=== PATIENT | male | born 1960 | race Caucasian/White ===

== ENCOUNTER 2016-09-21 05:39 | Day surgery (SDC) | payer OTHER ==
[2016-09-21] VITALS (10 sets, daily range): BP systolic 132–161; BP diastolic 63–97; PULSE 64–81; RESP 10–18; O2SAT 92–98
[~2016-09-21] VITALS: Ht 175.3 cm; Wt 93.2 kg
[~2016-09-21 05:39] MED LIST: SYN.15T2 PO
[2016-09-21] MEDS ORDERED: HYDROmorphone 2 mg/mL Inj ONE (05:40)
[2016-09-21] MEDS ORDERED: Dexamethasone 4 mg/mL Inj ONE (05:40)
[2016-09-21] MEDS ORDERED: Ondansetron 2 mg/mL 2 mL Inj ONE (05:40)
[2016-09-21] MEDS ORDERED: MetoCLOpramide 5 mg/mL 2 mL Inj ONE (05:40)
[2016-09-21] MEDS ORDERED: Propofol 10,000 mCg/mL 20 mL Inj ONE (05:40)
[2016-09-21] MEDS ORDERED: Glycopyrrolate 0.2 MG/ML 1mL Inj ONE (05:40)
[2016-09-21] MEDS ORDERED: Neostigmine 1 mg/mL 10 mL Inj ONE (05:40)
[2016-09-21] MEDS: Lactated Ringer's 1,000 ML IV SCH ×3 (05:54→09:20)
[2016-09-21] MEDS ORDERED: CeFAZolin Inj 2 gm / 50mL D5W IV ONE (05:57)
[2016-09-21] MEDS ORDERED: CeFAZolin 2 Gm/50 mL D5W IV Premix IV ONE (06:00)
--- NOTE | 2016-09-21 07:16 | PCM.HPANE ---
Patient Data Surgeon Admitting Provider: Attending Provider:Vinod Chairez MD Primary Care Physician:Eben Engle MD Other Provider:[facility] Reason for Visit Bilateral Inguinal Hernia Ht/WT & BMI Height (Feet): 5 Height (Inches): 9 Weight (Kilograms): 93.2 Body Mass Index 30.00 Allergies Coded Allergies: No Known Allergies (Unverified , 09/19/16) Past Anesthesia History Anesthesia History: Denies:: Abnormal Airway, Anesthesia Reactions, Difficult Intubation, Fam Anesthesia Reaction Diabetes History Hx Diabetes?: No MRSA MRSA: No Medications Hypertension Medication: No Home Meds Incl Beta David: No Reported Medications Levothyroxine (Synthroid)150 Mcg [id number] Mcg PO DAILY Ref 0 09/19/16 History History of ENT Problems?: No HEENT History: Positive for:: Sinus Problem (occasional) Denies:: Abnormal Airway Difficult Intubation Dysphagia Hearing Problem TMJ (per dentist - no nightguard use) Hx of Heart Problems?: No Cardiovascular History: Denies:: AICD Chest Pain Congestive Heart Failure Edema Heart Murmur Hypertension Irregular Heartbeat Pacemaker Peripheral Vascular Rheumatic Fever Thrombophlebitis Hx of Respiratory Problem?: No Respiratory History: Denies:: Asthma COPD Emphysema Oxygen Administration Pneumonia Tuberculosis Use of C-PAP Machine Hx Neurologic Problems?: No Neurological History: Denies:: CVA Headaches Multiple Sclerosis Parkinson's Disease Seizures TIA Hx of GI Problems?: Yes Gastrointestinal History: Denies:: Gall Bladder Disease Gastroesphageal Reflux Gastrointestinal Bleeding Heartburn Hiatal Hernia Other GI Pertinent History: pia inguinal hernia current admission problem- right inguinal hernia is recurrence Hx of Problems?: No Other Pertinent History: cyst left kidney found incidentally Male Hx: Denies:: Prostate Problems Skin History: Denies:: History Skin Disorders? Pressure Ulcers Hx Musculoskeletal Problems?: Yes Musculoskeletal History: Positive for:: Musculoskeletal Trauma (past hx right knee scope, ORIF leg trauma) Denies:: Back Injury (hx of 2 months ago- low left back pain, ilea-lumbar ligament pain) Fibromyalgia Joint Replacement Osteoarthritis Rheumatoid Arthritis Hx of Psycho/Social Problems?: No Psycho Social History: Denies:: Anxiety Hx Depression Hx Surgeries?: Yes (ORIF leg, tonsil, thyroidectomy, rt knee scope, RIH) Hx Any Other Health Problems?: Yes Other History: Positive for:: Cancer (thyroid) Thyroid Disease (hx thyroidectomy ([place])) History Blood Transfusions: Positive for:: Accept Blood Products? Denies:: Blood Transfuse Reaction Blood Transfusions Hx Diabetes: No Hx Alcohol Use: NoAlcoholic Drinks Per Day: one to two glasses wine weeklyHx Substance Use: NoHave You Smoked inLast 12 mo: No Stop/Bang Treated for Sleep Apnea?: No Do You Have a CPAP Machine?: No S-Snoring: Do You Snore Loudly: No T-Tired: feel tired, fatigued: No O-Obsered: Observed not breath: No P-Blood Pressure: treated: No B- Body Mass Index > 35 kg/m2: No A- Age over 50: Yes N- Neck Large Circumference: No G- Gender Male: Yes LIZZIE Total Score: 2 LIZZIE Risk Assessment: Low Risk, <3 Yes Risk Assessment Category Category 1A: Patient has history of documented sleep apnea, and HAS NOT received any narcotic, sedative or anesthesia administration during this stay. Category 1B: Patient has history of documented sleep apnea, and HAS received any narcotic , sedative or anesthesia administration during this stay Category 2: Patient has SUSPECTED Obstructive Sleep Apnea, and HAS received any narcotic , sedative or anesthesia administration during this stay. Category 3: Patient has SUSPECTED Obstructive Sleep Apnea and HAS NOT received narcotic, sedative or anesthesia administration during this stay. Category 4: Outpatient in Procedural Areas with known sleep apnea or who screen positive for High Risk via the STOP/BANG questionnaire. Exam Exam Vital Signs Vital Signs Date Time Temp Pulse Resp B/P Pulse Ox O2 Delivery O2 Flow Rate FiO2 09/21/16 06:04 36.2 67 18 139/81 98 Room Air General Appearance: Oriented X3 HEENT/AIRWAY: MP 2 Lungs: Normal Air Movement Heart: Regular Rate/Rhythm Meds/Labs/Diagnostics Admission Meds Current Medications Lactated Ringer's (Lr) 1,000 ml @ 120 mls/hr Q8H20M IV Last administered on t 05:54; Start 09/21/16 at 05:00; Stop 09/21/16 at 13:19 Plan Impression Patient chart reviewed, patient interviewed and anesthestic plan with risks, benefits, and alternatives discussed, and informed consent obtained. NPO Status: 09/20/16 ASA Physical Status: ASA2 Mod Systemic Disease Anesthetic Plan: GA Bene/Risks/Altern/Consents: Yes HP Complete Prior to Induction: Yes Dante Hankins MD Sep 21, 2016 07:16
[2016-09-21] MEDS ORDERED: Bupivacaine-MPF 0.25% 30 mL Inj INFILTRATE ONE (07:26)
[2016-09-21] MEDS ORDERED: Lactated Ringer's 1,000 ML IV SCH (07:48)
[2016-09-21] MEDS ORDERED: Lactated Ringer's 500 ML IV PRN (07:48)
[2016-09-21] MEDS ORDERED: MetoCLOpramide 5 mg/mL 2 mL Inj IVPUSH PRN (07:50)
[2016-09-21] MEDS ORDERED: Ondansetron 2 mg/mL 2 mL Inj IVPUSH PRN (07:50)
[2016-09-21] MEDS ORDERED: Phenylephrine 10,000 mCg/mL Inj IVPUSH PRN (07:50)
[2016-09-21] MEDS ORDERED: HYDROmorphone 1 mg/mL Inj IVPUSH PRN (07:50)
[2016-09-21] MEDS ORDERED: Dexamethasone 4 mg/mL Inj IVPUSH PRN (07:50)
[2016-09-21] MEDS ORDERED: fentaNYL-PF 50 mCg/mL 2 mL Inj IVPUSH PRN (07:50)
[2016-09-21] MEDS ORDERED: Labetalol 5 mg/mL 4 mL Inj IV PRN (07:50)
[2016-09-21] MEDS ORDERED: EPHEDrine Sulfate 50 mg/mL Inj IVPUSH PRN (07:50)
[2016-09-21] MEDS ORDERED: oxyCODONE-Acetamin 5-325 mg Tablet PO PRN (09:45)
--- NOTE | 2016-09-21 10:21 | OP ---
[address] [address] OPERATIVE REPORT PATIENT: NESHA NYE : 1960 MR#: [id number] ADMIT: 09/21/2016 JOB ID: [id number] DATE OF SURGERY: 09/21/2016 ANESTHESIA: General. PREOPERATIVE DIAGNOSIS(ES): Recurrent right inguinal hernia and primary left inguinal hernia. POSTOPERATIVE DIAGNOSIS(ES): Recurrent right inguinal hernia and primary left inguinal hernia(recurrent indirect hernia on the right, a large direct hernia on the left). OPERATION: Laparoscopic repair of recurrent right inguinal hernia and primary left inguinal hernia using mesh (TEP approach). SURGEON: Dr. Vinod Chairez. AUTOMATIC TRANSMISSION MECHANIC: Maksim Cabrera PA-C COMPLICATIONS: None. ESTIMATED BLOOD LOSS: Less less than 2 cc. SPECIMEN: None. FINDINGS: There is a small recurrent indirect hernia on the right. On the left there is a large direct inguinal hernia but no indirect identified. Both these were repaired with large Bard 3D Max mesh. INDICATIONS/SIGNIFICANT HISTORY: The patient is a 56-year-old man who has had a known left inguinal hernia for four or five years. He had previously had a right inguinal hernia repaired in 1995. He had had increasing discomfort on that left side and, therefore, was referred to me. I diagnosed him with bilateral hernias. After discussion, he elected to undergo laparoscopic repair of both of these at the same time. OPERATIVE TECHNIQUE: The patient was taken to the operating room and placed in the supine position. General anesthesia was administered. Perioperative antibiotics were given. The abdomen and groin were prepped and draped in a standard surgical fashion. A procedure pause performed. Entry was gained into the prepectoral space through a small infraumbilical incision. The anterior transversus fascia was opened and a 10 mm port inserted into the preperitoneal space. Insufflation was delivered. The base was then bluntly exploited using the camera. Two 5 mm ports were then inserted after local anesthetic injection into the lower midline. I continued to dissect the preperitoneal space. I identified the pubis and Vijay ligament medially. I then began by working on the right side which was the recurrent side. I worked out lateral to dissect that space. I then went to the cord structures. There was a small hernia there. The peritoneum was very adherent and attenuated. A small rent was made in his peritoneum. After freely dissecting the peritoneum away from the cord structures, that small hole was closed using a Vicryl Endoloop. I then turned my attention to the left side. There was a large direct hernia. This was reduced and again the space completely dissected to accommodate the mesh. A large left-sided 3D Max mesh was then placed on the left side. A single Opti-six tack was used to secure this to the Vijay ligament. A right side was then placed again with another single stitch. There was good complete coverage of the femoral direct and indirect spaces. The peritoneal edge was well away from the inferior edge of the mesh. The insufflation was then released and the peritoneum seemed to fill up over the mesh. The ports were then removed. The umbilical port site fascia was closed using 0-Vicryl. Skin was closed using 4-0 Vicryl. The entire procedure was well tolerated without complication.
--- NOTE | 2016-09-21 10:34 | PCM.ANEP2 ---
Post Anesthesia Evaluation ASA/CMS Post Anesthesia VS in Patient's Normal Range?: Yes Resp Stable; Airway Patent?: Yes CV Function & Hydration Stable: Yes Mental Status Recovered?: Yes Pain control Satisfactory?: Yes N/V Control Satisfactory?: Yes Dante Hankins MD Sep 21, 2016 10:34
--- NOTE | 2016-09-21 10:34 | PCM.ANEP1 ---
Post Anesthesia Phase 1 PACU Phase 1 Assessment Vital Signs Vital Signs Date Time Temp Pulse Resp B/P Pulse Ox O2 Delivery O2 Flow Rate FiO2 09/21/16 10:26 81 16 143/79 92 Room Air 09/21/16 10:15 36.6 80 17 148/70 94 Room Air 09/21/16 10:00 76 17 161/97 97 Room Air 09/21/16 09:55 79 15 149/78 98 Room Air 09/21/16 09:50 75 15 139/86 98 Simple Mask 9 09/21/16 09:45 66 12 132/77 95 Simple Mask 9 09/21/16 09:40 64 10 145/63 96 Simple Mask 9 09/21/16 09:36 36.7 148/81 09/21/16 06:04 36.2 67 18 139/81 98 Room Air Anesthetic Administered: GA Level of Alertness: Awake, talking Pain: No Nausea or Vomiting: No Oxygen Delivery: Room Air Lungs: Normal Air Movement Dante Hankins MD Sep 21, 2016 10:34
== END 2016-09-21 23:59 | disposition home or self-care (01) ==
LOC: SAS 05:39
PROVIDERS: ATTEND General Practice
DX: K40.91 Unilateral inguinal hernia, without obstruction or gangrene, recurrent (principal); K40.90 Unilateral inguinal hernia, without obstruction or gangrene, not specified as recurrent; Z85.850 Personal history of malignant neoplasm of thyroid
CPT/HCPCS: 49650; 49651; C1781; J0690; J1100; J1170; J2405; J2710; J2765; J7120

== ENCOUNTER → 2017-03-12 | Day surgery (SDC) | payer OTHER ==
[~2017-03-12] VITALS: Ht 175.3 cm; Wt 90.0 kg
[~2017-03-12] MED LIST changes: +0.9% Sodium Chloride 1,000 ML IV SCH; +Sodium Chloride LOK Flush 10 mL Syringe IV PRN; +fentaNYL-PF 50 mCg/mL 2 mL Inj IVPUSH PRN
[2017-03-12 10:44] VITALS: BP 144/89; PULSE 76; RESP 14; O2SAT 97
--- NOTE | 2017-03-12 11:45 | PCM.ENDCOL ---
Colonoscopy Date of Service: Mar 12, 2017 Physician Adair Ramirez MD Pre Procedure Diagnosis: Screening Post Procedure Dx & Findings: Hemorrhoids Procedure Colonoscopy PROCEDURE IN DETAIL: Prep adequate Withdrawal time 9 minutes After unremarkable rectal examination the Olympus video colonoscope was inserted patient's anal canal and was advanced to cecum. Landmarks were identified including the ileocecal valve and appendiceal orifice. Scope was withdrawn systematically. Visualized colonic mucosa showed healthy shiny mucosa with normal healthy-appearing vasculature. In the rectum retroflexion was done which showed hemorrhoids. Anal canal was inspected carefully on the way out and hemorrhoids noted. Impression No family history or personal history of colon polyp or cancer. Hemorrhoids Recommendation Repeat colonoscopy 10 years Presedation Assessment Risks and Benefits Informed consent was obtained from the patient after all risks and benefits including but not limited to drug reaction, infection, pain, bleeding, perforation, as well as alternatives were discussed. Patient monitoring Continuous pulse oximetry, cardiac monitoring, blood pressure monitoring, IV access, and oxygen at 2L per nasal cannula. Periprocedural Fentanyl: Fentanyl 100mcg Incrementally Midazolam: Midazolam 5mg Incrementally Complications There were no periprocedural complications identified. Post Procedure Plan Post Procedure Recommendations 1. Restrict activities today. 2. Resume normal activities in the morning. 3. Resume medications. 4. Patient informed of normal post procedure side effects as bloating, drowsiness, blood streaking in the stool. 5. average risk CRCS. If colon polyps come back as: -Hyperplastic- can repeat colonoscopy in 10 years -Tubular adenoma- repeat colonoscopy in 5 years -Tubulovillous/villous adenoma- repeat colonoscopy in 3 years -If any dysplasia- return to clinic as soon as possible 6. Please don't hesitate to call me with any questions. Adair Ramirez MD Mar 12, 2017 11:45
[2017-03-12 11:47] VITALS: BP 119/69; PULSE 66; RESP 16; O2SAT 96
[2017-03-12 12:06] VITALS: BP 125/84; PULSE 63; RESP 16; O2SAT 95
== END | disposition home or self-care (01) ==
LOC: END 00:35
PROVIDERS: ATTEND Internal Medicine
DX: Z12.11 Encounter for screening for malignant neoplasm of colon (principal); K64.8 Other hemorrhoids; E78.5 Hyperlipidemia, unspecified
CPT/HCPCS: 99153; G0121; G0500; J2250; J3010; J7030